=== PATIENT | male | born 1935 | race Caucasian/White ===

== ENCOUNTER → 2019-05-26 | Outpatient (CLI) | payer OTHER ==
--- NOTE | 2019-05-26 11:27 | 2DMMODE ---
[facility] [place] [address] 2 D/M-MODE ECHOCARDIOGRAM Name: ANDREA BEST Room #: REG [facility]#: [id number] Admission: 05/26/19 Attend Phys: Campbell Pelayo MD Discharge: Date of : 37 Date of Service: 05/26/19 1127 Report #: [id number] THIS REPORT FOR: //name// APPROVED REPORT Study performed: 05/26/2019 10:32:34 EXAM: Comprehensive 2D, Doppler, and color-flow Echocardiogram Patient Location: Out-Patient Status: routine BSA: 2.06 HR: 81 bpm BP: 110/80 mmHg Rhythm: Pacemaker Other Information Study Quality: Good Indications LV FUNCTION. HX: CABG, STENTS, COPD, AFIB, PACER. 2D Dimensions RVDd: 44.36 mm IVSd: 12.28 (7-11mm) LVOT Diam: 22.25 (18-24mm) LVDd: 49.46 mm PWd: 9.15 (7-11mm) Ascending Ao: 37.23 (22-36mm) LVDs: 43.04 (25-40mm) Aortic Root: 34.55 mm Volumes Left Atrial Volume (Systole) Single Plane 4CH: 62.23 mL Single Plane 2CH: 96.85 mL LA ESV Index: 41.00 mL/m2 Aortic Valve AoV Peak Felipe.: 1.78 m/s AO Peak Gr.: 12.69 mmHg LVOT Max P.61 mmHg AO Mean Gr.: 7.96 mmHg AO V2 Mean: 1.36 m/s LVOT Max V: 0.63 m/s AO V2 VTI: 31.62 cm EDWIN Vmax: 1.38 cm2 Mitral Valve MV Decel. Time: 119.95 ms [facility] [place] [address] 2 D/M-MODE ECHOCARDIOGRAM Name: ANDREA BEST Room #: REG [facility].#: [id number] Admission: 05/26/19 Attend Phys: Campbell Pelayo MD Discharge: Date of : 37 Date of Service: 05/26/19 1127 Report #: [id number] MV E Max Felipe.: 0.94 m/s Pulmonary Valve PV Peak Felipe.: 0.59 m/s PV Peak Gr.: 1.42 mmHg Tricuspid Valve TR Peak Felipe.: 3.31 m/s RAP Estimate: 5.00 mmHg TR Peak Gr.: 43.70 mmHg PA Pressure: 49.00 mmHg Left Ventricle The left ventricle is normal size. Mild septal hypertrophy is present. Left ventricular systolic function is severely decreased. LVEF is 30-35%. This study is not technically sufficient to allow evaluation of the LV diastolic function due to atrial fibrillation. Right Ventricle Right ventricle is mildly dilated. The right ventricular systolic function is normal. Pacemaker lead is present in the right ventricle. Atria Left atrium is moderately dilated. Right atrium is moderately dilated. Aortic Valve Aortic valve is moderately calcified. Trace aortic regurgitation. There is mild to moderate valvular aortic stenosis. Calculated aortic valve area is 1.4 cm2 with maximum pressure gradient of 13 mmHg and mean pressure gradient of 8 mmHg. Mitral Valve The mitral valve is normal in structure. Mild mitral annular calcification. Trace mitral regurgitation. Tricuspid Valve The tricuspid valve is normal in structure. Moderate tricuspid regurgitation. Estimated PAP is 50mmHg. Pulmonic Valve The pulmonary valve is normal in structure. Mild to moderate pulmonic regurgitation. Great Vessels The aortic root is normal in size. The ascending aorta is normal in size. IVC is normal in size and collapses >50% with [facility] [address] [place] [address] 2 D/M-MODE ECHOCARDIOGRAM Name: ESTEPHANIA,ANDREA [id number] Admission: 05/26/19 Attend Phys: Campbell Pelayo MD Discharge: Date of : 37 Date of Service: 05/26/19 1127 Report #: [id number] inspiration. Pericardium There is no pericardial effusion. <Conclusion> The left ventricle is normal size. Left ventricular systolic function is severely decreased. LVEF is 30-35%. Right ventricle is mildly dilated. The right ventricular systolic function is normal. Pacemaker lead is present in the right ventricle. Left atrium is moderately dilated. Right atrium is moderately dilated. Aortic valve is moderately calcified. Trace aortic regurgitation. There is mild to moderate valvular aortic stenosis. Calculated aortic valve area is 1.4 cm2 with maximum pressure gradient of 13 mmHg and mean pressure gradient of 8 mmHg. The mitral valve is normal in structure. Mild mitral annular calcification. Trace mitral regurgitation. The tricuspid valve is normal in structure. Moderate tricuspid regurgitation. Estimated PAP is 50mmHg. The pulmonary valve is normal in structure. Mild to moderate pulmonic regurgitation. There is no pericardial effusion. <ELECTRONICALLY SIGNED> By: Binu Campa MD 05/26/19 1127 1127 112 Binu Campa MD /INF
== END ==
LOC: CV 10:02
DX: I08.8 Other rheumatic multiple valve diseases (principal); J44.9 Chronic obstructive pulmonary disease, unspecified; I48.91 Unspecified atrial fibrillation; Z95.1 Presence of aortocoronary bypass graft